=== PATIENT | male | born 1965 | race Caucasian/White ===

== ENCOUNTER → 2020-06-04 | Outpatient (CLI) | payer OTHER | LOC: ECHO 10:51 | DX: Z51.81 Encounter for therapeutic drug level monitoring (principal); I50.9 Heart failure, unspecified | CPT/HCPCS: ECHO; 93306 ==

== ENCOUNTER 2021-08-31 20:31 | Emergency (ER) | payer OTHER | END 2021-09-01 02:43 | disposition home or self-care (01) | LOC: ER1 20:31 | DX: S80.11XA Contusion of right lower leg, initial encounter (principal); S80.211A Abrasion, right knee, initial encounter; W01.0XXA Fall on same level from slipping, tripping and stumbling without subsequent striking against object, initial encounter; Y92.009 Unspecified place in unspecified non-institutional (private) residence as the place of occurrence of the external cause | CPT/HCPCS: 73564; 73630; 99283 ==

== ENCOUNTER 2021-11-08 11:34 | Emergency (ER) | payer OTHER ==
[2021-11-08 12:10] LABS: RED BLOOD COUNT 3.71 M/UL (4.20-5.50); WHITE BLOOD COUNT 6.8 K/UL (4.5-11.0)
== END 2021-11-08 15:57 | disposition other institution (70) ==
LOC: ER1 11:34
PROVIDERS: Physician Assistant
DX: H21.01 Hyphema, right eye (principal); H54.61 Unqualified visual loss, right eye, normal vision left eye
CPT/HCPCS: 70450; 71045; 80053; 82550; 82553; 82962; 84484; 85025; 85610; 85730; 93005; 96374; 96375; 99285; C9113; J0360; J2405